=== PATIENT | female | born 1980 | race Caucasian/White ===

== ENCOUNTER → 2016-05-19 | Outpatient (REF) | payer OTHER | LOC: M SFHCWAGY 09:37 | PROVIDERS: ATTEND Nurse Practitioner Family | DX: Z12.4 Encounter for screening for malignant neoplasm of cervix (principal) ==

== ENCOUNTER → 2018-07-09 | Outpatient (REF) | payer OTHER ==
[2018-07-09 19:53] LABS: BASO # 0.1 10^3/uL (0.0-0.2); BASO % 0.6 % (0.0-1.0); EOS # 0.1 10^3/uL (0.0-0.50); EOS % 1.3 % (0.0-3.0); HEMATOCRIT 42.9 % (36.0-47.0); HEMOGLOBIN 14.1 g/dl (12.0-15.5); LYMPH # 3.1 10^3/uL (1.5-4.5); LYMPH % 33.4 % (24.0-44.0); MEAN CORPUSCULAR HEMOGLOBIN 27.7 pg (27.0-33.0); MEAN CORPUSCULAR HGB CONC 32.9 g/dl (32.0-36.5); MEAN CORPUSCULAR VOLUME 84.3 fl (80.0-96.0); MONO # 0.6 10^3/uL (0.0-0.8); MONO % 6.7 % (0.0-5.0); NEUTROPHILS # 5.3 10^3/uL (1.8-7.7); NEUTROPHILS % 57.5 % (36.0-66.0); PLATELET COUNT, AUTOMATED 301 10^3/uL (150-450); RED BLOOD COUNT 5.09 10^6/uL (4.00-5.40); WHITE BLOOD COUNT 9.2 10^3/uL (4.0-10.0)
[2018-07-09 20:05] LABS: ALBUMIN 4.2 GM/DL (3.2-5.2); ALT/SGPT 24 U/L (12-78); BILIRUBIN,TOTAL 0.3 MG/DL (0.2-1.0); BLOOD UREA NITROGEN 13 MG/DL (7-18); CALCIUM LEVEL 9.4 MG/DL (8.5-10.1); CARBON DIOXIDE LEVEL 25 MEQ/L (21-32); CHLORIDE LEVEL 106 MEQ/L (98-107); CHOLESTEROL LEVEL 190 MG/DL (<200); CHOLESTEROL RISK RATIO 3.653 (<5); CREATININE FOR GFR 0.71 MG/DL (0.55-1.30); GLOMERULAR FILTRATION RATE > 60.0 (>60); GLUCOSE, FASTING 85 MG/DL (70-100); HDL CHOLESTEROL 52 MG/DL (>40); LDL CHOLESTEROL 106 MG/DL (<100); NON-HDL-C 138 MG/DL; POTASSIUM SERUM 3.8 MEQ/L (3.5-5.1); SODIUM LEVEL 139 MEQ/L (136-145); TOTAL PROTEIN 7.1 GM/DL (6.4-8.2); TRIGLYCERIDES LEVEL 161 MG/DL (<150)
[2018-07-09 20:06] LABS: TOTAL 25(OH) VITAMIN D 27.8 NG/ML (30.0-100.0)
[2018-07-09 20:37] LABS: HEMOGLOBIN A1c 5.6 %
== END ==
LOC: M LAB REF 19:06
PROVIDERS: ATTEND Nurse Practitioner Family
DX: Z13.9 Encounter for screening, unspecified (principal)

== ENCOUNTER → 2018-07-09 | Outpatient (REF) | payer OTHER ==
[2018-07-09 19:04] LABS: APPEARANCE, URINE CLEAR (CLEAR); BACTERIA, URINE AUTO NEGATIVE (NEGATIVE); BILIRUBIN, URINE AUTO NEGATIVE (NEGATIVE); BLOOD, URINE BLOOD NEGATIVE (NEGATIVE); COLOR, URINE YELLOW (YELLOW); GLUCOSE, URINE (UA) AUTO NEGATIVE (NEGATIVE); KETONE, URINE AUTO 1+ mg/dL (NEGATIVE); LEUKOCYTE ESTERASE, URINE AUTO NEGATIVE (NEGATIVE); NITRITE, URINE AUTO NEGATIVE (NEGATIVE); PROTEIN, URINE AUTO NEGATIVE (NEGATIVE); RBC, URINE AUTO 1 /HPF (0-3); SPECIFIC GRAVITY URINE AUTO 1.009 (1.002-1.035); SQUAMOUS EPITHELIAL CELL UR AU 2 /HPF (0-6); UROBILINOGEN, URINE AUTO 0.2 mg/dL (0.0-2.0); WBC, URINE AUTO 2 /HPF (0-3)
== END ==
LOC: M LAB REF 16:56
PROVIDERS: ATTEND Nurse Practitioner Family
DX: Z13.9 Encounter for screening, unspecified (principal)

== ENCOUNTER → 2018-08-10 | Outpatient (CLI) | payer OTHER ==
--- NOTE | 2018-08-13 09:56 | REP ---
MRI RIGHT SHOULDER: TECHNIQUE: Axial T2 fat sat, gradient echo, sagittal oblique T2 fat sat, coronal oblique T1, T2 fat sat. There is scattered ill-defined high signal in T2-weighted images involving the supraspinatus tendon compatible with mild to moderate tendinopathy. I do not see a discrete rotator cuff tendon tear. There are mild hypertrophic degenerative changes of the acromioclavicular joint with mild subchondral marrow edema and cystic change of the distal clavicle and mild fluid in the joint. The acromion is slightly downward sloping and is type 1. Biceps tendon is within the bicipital groove with no tenosynovitis. There is no Hill-Sachs deformity. The deltoid muscle demonstrates no abnormal signal. There is abnormal signal involving the superior labrum diffusely, also the biceps labral complex. This could indicate a SLAP tear. Other portions of the labrum appear intact. I do not see a paralabral cyst. There is a normal amount of joint fluid. IMPRESSION: Mild supraspinatus tendinopathy without a discrete rotator cuff tendon tear. Mild hypertrophic degenerative changes of the acromioclavicular joint with mild downward sloping of the acromion. Abnormal signal involving the superior labrum diffusely as well as the biceps labral complex could indicate a SLAP tear. This could be confirmed with an MR arthrogram. Electronically Signed by Waylon Jules MD 08/13/2018 11:04 A
== END ==
LOC: M RAD 10:10
PROVIDERS: ATTEND Orthopaedic Surgery Sports Medicine
DX: M25.511 Pain in right shoulder (principal); M19.011 Primary osteoarthritis, right shoulder; M77.9 Enthesopathy, unspecified

== ENCOUNTER → 2019-01-16 | Outpatient (REF) | payer OTHER | LOC: M SFHCPLAZ 17:26 | PROVIDERS: ATTEND Dermatology | DX: D22.4 Melanocytic nevi of scalp and neck (principal) ==

== ENCOUNTER → 2020-07-21 | Outpatient (REF) | payer OTHER | LOC: M SFHCWAGY 13:01 | PROVIDERS: ATTEND Nurse Practitioner Women's Health | DX: Z12.4 Encounter for screening for malignant neoplasm of cervix (principal) | CPT/HCPCS: 87624; G0123 ==

== ENCOUNTER → 2020-08-27 | Outpatient (CLI) | payer OTHER ==
[~2020-08-27] MED LIST: ACET-897 PO; IBUP-1114 PO
== END ==
LOC: M LABSMTC 09:33
PROVIDERS: ATTEND Anesthesiology
DX: Z20.828 Contact with and (suspected) exposure to other viral communicable diseases (principal); Z11.59 Encounter for screening for other viral diseases

== ENCOUNTER 2020-09-01 06:10 | Day surgery (SDC) | payer OTHER ==
[~2020-09-01] VITALS: Ht 154.9 cm; Wt 69.4 kg
[~2020-09-01 06:10] MED LIST changes: +LR 1,000 ML IV ONE; +ceFAZolin SOD 2 GM in IV 1 EA IV ONE
[2020-09-01] MEDS ORDERED: fentaNYL 100 MCG/2 ML INJECTION (J3010) IV PRN ×2 (07:01→09:50)
[2020-09-01] MEDS ORDERED: LIDOCAINE 1% MDV 20ML VIAL XX ONE (07:10)
[2020-09-01] MEDS ORDERED: ROPIvacaine 0.5% 30ML INJECTION (J2795 PER 1MG) XX ONE (07:10)
[2020-09-01] MEDS ORDERED: EPINEPHrine INJ 1 MG/ML 1ML AMP XX ONE (07:10)
[2020-09-01] MEDS ORDERED: EPINEPHrine 1MG/ML INJ 30ML MD-VIAL As Ordered ONE (07:13)
[2020-09-01] MEDS ORDERED: LIDOCAINE 1% MDV 20ML VIAL As Ordered ONE (07:14)
[2020-09-01] MEDS: MIDAZOLAM INJ 2MG/2ML VIAL (J2250 PER 1MG) IV PRN ×3 (07:20→07:22)
[2020-09-01] MEDS ORDERED: METOCLOPRAMIDE INJ 10MG/2ML VIAL (J2765 PER 1) As Ordered ONE (07:58)
[2020-09-01] MEDS ORDERED: dexameTHASONE 4 MG/ML 1ML VIAL (J1100 PER 1MG) As Ordered ONE (07:58)
[2020-09-01] MEDS ORDERED: LIDOCAINE 2% 100MG/5ML SDV (FOR ANES.) As Ordered ONE (07:58)
[2020-09-01] MEDS ORDERED: MIDAZOLAM INJ 2MG/2ML VIAL (J2250 PER 1MG) As Ordered ONE (07:58)
[2020-09-01] MEDS ORDERED: ROCURONIUM BROMIDE 50 MG/5 ML VIAL As Ordered ONE (07:58)
[2020-09-01] MEDS ORDERED: SUGAMMADEX SODIUM 500 MG/5 ML VIAL (BRIDION) As Ordered ONE (07:58)
[2020-09-01] MEDS ORDERED: fentaNYL 250 MCG/5 ML INJECTION (J3010) As Ordered ONE (07:58)
[2020-09-01] MEDS ORDERED: propofoL 200 MG/20 ML VIAL As Ordered ONE (07:58)
[2020-09-01] MEDS ORDERED: ACETAMINOPHEN 1000MG 100ML IV BTL (OFIRMEV) (J0131 PER 10MG) As Ordered ONE (07:58)
[2020-09-01] MEDS ORDERED: ONDANSETRON 4MG/2ML VIAL As Ordered ONE (07:58)
[2020-09-01] MEDS ORDERED: diphenhydrAMINE 50MG/ML VIAL (J1200) As Ordered ONE (08:07)
[2020-09-01] MEDS ORDERED: KETOROLAC 60MG 2ML VIAL As Ordered ONE (08:07)
--- NOTE | 2020-09-01 09:41 | ROOPDOC ---
[facility] Report Of Operation Report of Operation DATE OF PROCEDURE: 09/01/20 PREPROCEDURE DIAGNOSES: Right shoulder impingement. POSTPROCEDURE DIAGNOSES: Right shoulder impingement and type II SLAP tear. PROCEDURE: Right shoulder arthroscopy, subacromial decompression, distal clavicle excision, sub-pectoral biceps tenodesis. SURGEON: Dr. Ranjith Almeida MD [employer] APPRENTICE: MD Miguel ANESTHESIA: Gen. anesthesia and block by Dr Parkinson. ESTIMATED BLOOD LOSS: Approximately 20 mL. COMPLICATIONS: None. REMARKS: None. PROCEDURE NOTE: This 40-year-old female had signs and symptoms consistent with right shoulder impingement as well as pain from the acromioclavicular joint. She was ahead with right shoulder arthroscopy subacromial decompression distal clavicle excision and possible subpectoral biceps tenodesis. We discussed the pros and cons risks and benefits of going ahead. She wished to proceed. I marked the right upper extremity. She had no further questions.. DESCRIPTION OF PROCEDURE: The patient was brought to the operating room theater. There placed supine on the operating room table. General anesthesia was induced. 2 g of IV Ancef was administered prior to the start of the case. Patient was transferred right lateral decubitus with the aid of the beanbag positioner and axillary roll was placed SCDs used on the down legs and all bony prominences appropriately padded. Right upper extremity prepped and draped with chlorhexidine-based prep solution and 45 of abduction with 10 pounds of traction. Preoperative timeout performed to confirm the site the patient and the surgery. We began by making a standard posterior arthroscopy portal inserting the arthroscope into the intra-articular portion of the right shoulder. I performed a thorough diagnostic arthroscopy. Cartilage on the glenoid and humerus side was normal. Subscapularis as well as undersurface of the supraspinatus and posterior rotator cuff muscles appeared normal. Anterior portal was created through the rotator interval just posterior to the biceps tendon. There is an obvious type II SLAP tear of the biceps root. The biceps tendon itself appeared normal. As such I elected to perform a biceps tenodesis. I used intra-articular electrocautery to perform biceps tenotomy in preparation for the tenodesis.. Arthroscope was withdrawn. Next I turned my attention to the upper end of the humerus. I made a standard longitudinal incision centered at the proximal anterior medial border of the upper humerus. I carried the dissection down throu gh skin and subcutaneous tissue achieving meticulous hemostasis. I incised through the fascia and a similar fashion and retracted the deltoid anteriorly. I identified the long head of the biceps. I delivered this through the incision. I used the Arthrex fiber loop suture and Tanner needle to perform 5 locking sutures starting at the musculotendinous junction. I removed any remaining long head of the biceps tendon. I then identified the biceps groove. I made a unicortical hole with the straight tip drill bit and then thoroughly irrigated and any bone dust. I passed the sutures in a crisscross fashion through the button and in a standard way. I then delivered the button and the whole foot the button and then used the tension slide technique to deliver the tendon to the bone. I then used a free needle to pass 1 suture through the remaining tendon and then 5 interrupted alternating half hitches and the sutures cut short. Wound thoroughly irrigated subcutaneous tissues closed with 2-0 Vicryl and skin with 3-0 Monoc ryl. And instrument attention back to the shoulder. I inserted the arthroscope into the subacromial space. I made a lateral accessory portal. I performed a thorough bursectomy for a normal-appearing amount of mild to moderate bursal tissue. I identified the anterolateral aspect of the acromion for a slight downsloping and then did a subacromial decompression for approximately 4 mm down to flat smooth margins. I then identified the lower end of the clavicle. I cleared away any interposed soft tissue. I performed a distal clavicle excision through the lateral and anterior portals. I excised approximately 1.1 cm of the distal end of the clavicle. Arthroscopy pictures were taken through the case and saved onto the system. Case was terminated. Wounds cleaned with wet and dry dressing. Anterior portal closed with 3-0 Monocryl. Steri-Strips applied to all the incisions followed by Adaptic 4 x 8 gauze and abdominal pad dressing taped in place with cloth tape. Right upper extremity placed into a sling. Patient woken up from the general anesthetic transferred off the operating room table and taken to postanesthetic care unit in stable condition. Plan for the patient begin pendulum exercises 4 times a day as well as hand wrist and elbow exercises. Follow-up in the clinic in 2 weeks' time. Avoid showering over top of the first 2 weeks keep it clean and dry dressing changes postoperative day 1, 2, and as needed. The patient declined oral narcotic medication for postoperative pain control and will try Tylenol and anti-inflammatories. Postoperative wound instructions were given. It was recommended to keep the wound clean and dry. Dressing changes as needed. It was reinforced with the patient that they should call us or be seen immediately for redness, drainage, or fever. Risk factors for harms from taking opioid medications discussed and assessed including but not limited to personal or family history of substance use disorder, anxiety or depression, , age 65 or older, COPD or other underlying respiratory conditions, and renal or hepatic insufficiency. Discussed with patient concerns and determined any harms they may experience or be currently experiencing such as nausea or constipation, feeling sedated or confused, breathing interruptions during sleep, or taking or craving more opioids than prescribed or difficulty controlling use (addiction). Discussed early warning signs of overdose including confusion, sedation, slurred speech, abnormal gait. RANJITH LAMEIDA MD Sep 01, 2020 09:41
[2020-09-01] MEDS ORDERED: PERCOCET 5MG/325MG TAB PO PRN ×2 (09:50→09:55)
[2020-09-01] MEDS ORDERED: METOCLOPRAMIDE INJ 10MG/2ML VIAL (J2765 PER 1) IV PRN (09:50)
[2020-09-01] MEDS ORDERED: HYDROMORPHONE HCL 0.5 MG/ 0.5 ML SYRINGE (J1170 PER 1) IV PRN (09:50)
[2020-09-01] MEDS ORDERED: ONDANSETRON 4MG/2ML VIAL IV PRN ×2 (09:50→09:55)
[2020-09-01] MEDS ORDERED: LR 1,000 ML IV SCH ×2 (09:50)
[2020-09-01] MEDS ORDERED: MORPHINE 2 MG/ML 1ML VIAL (J2270) IV PRN (09:55)
[2020-09-01] MEDS ORDERED: ACETAMINOPHEN TAB 650MG DOSE (2X325MG) PO PRN (09:55)
[2020-09-01 10:25] VITALS: BP 100/55
== END 2020-09-01 10:25 | disposition home or self-care (01) ==
LOC: M SDC 06:10
PROVIDERS: ATTEND Orthopaedic Surgery Sports Medicine
DX: M75.41 Impingement syndrome of right shoulder (principal); Z88.8 Allergy status to other drugs, medicaments and biological substances; F17.218 Nicotine dependence, cigarettes, with other nicotine-induced disorders
CPT/HCPCS: 23430; 29824; 29826; 64415; 88304; C1713; J0131; J0171; J0690; J1100; J1200; J1885; J2250; J2405; J2765; J2795; J3010

== ENCOUNTER → 2021-05-11 | Outpatient (CLI) | payer OTHER ==
[~2021-05-11] MED LIST changes: -LR 1,000 ML IV ONE; -ceFAZolin SOD 2 GM in IV 1 EA IV ONE
== END ==
LOC: M WHC 11:59
PROVIDERS: ATTEND Nurse Practitioner Family
DX: N94.89 Other specified conditions associated with female genital organs and menstrual cycle (principal)

== ENCOUNTER → 2021-06-13 | Outpatient (CLI) | payer OTHER ==
[2021-06-13 17:22] LABS: HEMATOCRIT 43.4 % (36.0-47.0); HEMOGLOBIN 14.2 g/dl (12.0-15.5); MEAN CORPUSCULAR HEMOGLOBIN 27.4 pg (27.0-33.0); MEAN CORPUSCULAR HGB CONC 32.7 g/dl (32.0-36.5); MEAN CORPUSCULAR VOLUME 83.8 fl (80.0-96.0); PLATELET COUNT, AUTOMATED 293 10^3/uL (150-450); RED BLOOD COUNT 5.18 10^6/uL (4.00-5.40); WHITE BLOOD COUNT 10.2 10^3/uL (4.0-10.0)
[2021-06-13 17:54] LABS: FREE T4 1.16 NG/DL (0.76-1.46); THYROID STIMULATING HORMONE 2.09 uIU/ML (0.358-3.740)
== END ==
LOC: M PLALAB 14:49
PROVIDERS: ATTEND Obstetrics & Gynecology
DX: N93.9 Abnormal uterine and vaginal bleeding, unspecified (principal)

== ENCOUNTER → 2021-08-01 | Outpatient (CLI) | payer OTHER | LOC: M LABSMTC 09:31 | PROVIDERS: ATTEND Anesthesiology | DX: Z01.812 Encounter for preprocedural laboratory examination (principal); Z11.52 Encounter for screening for COVID-19; U07.1 COVID-19 ==

== ENCOUNTER 2021-08-05 07:58 | Day surgery (SDC) | payer OTHER ==
[~2021-08-05] VITALS: Ht 154.9 cm; Wt 65.7 kg
[~2021-08-05 07:58] MED LIST changes: +KETOROLAC 60MG 2ML VIAL As Ordered ONE; +LIDOCAINE 1% MDV 20ML VIAL SQ PRN; +LIDOCAINE 2% 100MG/5ML SDV (FOR ANES.) As Ordered ONE; +LR 1,000 ML IV ONE; +MIDAZOLAM INJ 2MG/2ML VIAL (J2250 PER 1MG) As Ordered ONE; +ONDANSETRON 4MG/2ML VIAL As Ordered ONE; +SEVOFLURANE INHAL SOLN 250 ML BTL As Ordered ONE; +dexameTHASONE 4 MG/ML 1ML VIAL (J1100 PER 1MG) As Ordered ONE; +fentaNYL 100 MCG/2 ML INJECTION As Ordered ONE; +propofoL 200 MG/20 ML VIAL As Ordered ONE
[2021-08-05 08:44] LABS: HEMOGLOBIN 14.4 g/dl (12.0-15.5); MEAN CORPUSCULAR HEMOGLOBIN 27.5 pg (27.0-33.0); MEAN CORPUSCULAR HGB CONC 32.7 g/dl (32.0-36.5); PLATELET COUNT, AUTOMATED 309 10^3/uL (150-450); RED BLOOD COUNT 5.24 10^6/uL (4.00-5.40); WHITE BLOOD COUNT 5.2 10^3/uL (4.0-10.0)
[2021-08-05] MEDS ORDERED: diphenhydrAMINE 50MG/ML VIAL (J1200) As Ordered ONE (09:10)
[2021-08-05] MEDS ORDERED: SCOPOLAMINE 1MG TRANSDERMAL PATCH As Ordered ONE (09:22)
[2021-08-05] MEDS ORDERED: SCOPOLAMINE 1MG TRANSDERMAL PATCH TOP ONE (09:45)
[2021-08-05] MEDS ORDERED: ePHEDrine SULFATE 25 MG/5 ML(5MG/ML) SYRINGE As Ordered ONE (09:46)
[2021-08-05] MEDS ORDERED: METOCLOPRAMIDE INJ 10MG/2ML VIAL (J2765 PER 1) As Ordered ONE (09:53)
[2021-08-05] MEDS ORDERED: LACRILUBE (AKWA TEARS) OPHTH OINT 3.5 GM As Ordered ONE (10:07)
[2021-08-05] MEDS ORDERED: oxyCODONE 5MG TAB PO PRN (10:55)
[2021-08-05] MEDS ORDERED: ONDANSETRON 4MG/2ML VIAL IV PRN (10:55)
[2021-08-05] MEDS ORDERED: LR 1,000 ML IV SCH (10:55)
[2021-08-05] MEDS ORDERED: fentaNYL 100 MCG/2 ML INJECTION IV PRN (10:55)
[2021-08-05] MEDS ORDERED: HYDROMORPHONE HCL 0.5 MG/ 0.5 ML SYRINGE (J1170 PER 1) IV PRN (10:55)
[2021-08-05] MEDS ORDERED: PERCOCET 5MG/325MG TAB PO PRN (11:00)
[2021-08-05 11:55] VITALS: BP 125/65
[2021-08-05] MEDS ORDERED: KETOROLAC 30 MG/ML 1ML VIAL IV SCH (15:00)
== END 2021-08-05 12:06 | disposition home or self-care (01) ==
LOC: M SDC 07:58
PROVIDERS: ATTEND Obstetrics & Gynecology
DX: N94.6 Dysmenorrhea, unspecified (principal); N93.9 Abnormal uterine and vaginal bleeding, unspecified; F17.210 Nicotine dependence, cigarettes, uncomplicated; Z88.8 Allergy status to other drugs, medicaments and biological substances
CPT/HCPCS: 36415; 58563; 81025; 85027; 86850; 86900; 86901; 88305; J1100; J1200; J1885; J2250; J2405; J2765; J3010

== ENCOUNTER → 2022-01-27 | Outpatient (CLI) | payer OTHER ==
[~2022-01-27] MED LIST changes: -KETOROLAC 60MG 2ML VIAL As Ordered ONE; -LIDOCAINE 1% MDV 20ML VIAL SQ PRN; -LIDOCAINE 2% 100MG/5ML SDV (FOR ANES.) As Ordered ONE; -LR 1,000 ML IV ONE; -MIDAZOLAM INJ 2MG/2ML VIAL (J2250 PER 1MG) As Ordered ONE; -ONDANSETRON 4MG/2ML VIAL As Ordered ONE; -SEVOFLURANE INHAL SOLN 250 ML BTL As Ordered ONE; -dexameTHASONE 4 MG/ML 1ML VIAL (J1100 PER 1MG) As Ordered ONE; -fentaNYL 100 MCG/2 ML INJECTION As Ordered ONE; -propofoL 200 MG/20 ML VIAL As Ordered ONE
== END ==
LOC: M SOG 08:25
PROVIDERS: ATTEND Orthopaedic Surgery
DX: M54.2 Cervicalgia (principal); M25.511 Pain in right shoulder

== ENCOUNTER → 2022-01-31 | Outpatient (REF) | payer OTHER ==
[2022-01-31 13:28] LABS: APPEARANCE, URINE MANUAL CLEAR (CLEAR); COLOR, URINE MANUAL GREEN (YELLOW); PROTEIN, URINE MANUAL OBSCURED mg/dL (NEGATIVE)
[2022-01-31 13:29] LABS: BILIRUBIN, URINE MANUAL OBSCURED (NEGATIVE); BLOOD URINE MANUAL OBSCURED (NEGATIVE); GLUCOSE, URINE (UA) MANUAL OBSCURED mg/dL (NEGATIVE); KETONE, URINE MANUAL OBSCURED mg/dL (NEGATIVE); LEUKOCYTE ESTERASE, URINE MAN OBSCURED (NEGATIVE); NITRITE, URINE MANUAL OBSCURED (NEGATIVE); UROBILINOGEN, URINE MANUAL OBSCURED mg/dl (NORMAL)
[2022-01-31 13:43] LABS: SQUAMOUS EPITHELIAL CELL URINE SMALL AMOUNT /hpf (SMALL AMT)
[2022-01-31 13:44] LABS: BACTERIA, URINE SMALL AMOUNT; HYALINE CAST, URINE NONE SEEN /lpf (0-1); MUCUS, URINE SMALL AMOUNT (NEGATIVE)
== END ==
LOC: M LAB REF 11:41
PROVIDERS: ATTEND Physician Assistant Medical
DX: N39.0 Urinary tract infection, site not specified (principal)

== ENCOUNTER → 2022-02-18 | Outpatient (CLI) | payer OTHER | LOC: M RAD 08:08 | PROVIDERS: ATTEND Orthopaedic Surgery | DX: M47.22 Other spondylosis with radiculopathy, cervical region (principal) ==

== ENCOUNTER 2022-02-21 14:47 | Outpatient (RCR) | payer OTHER | END 2022-03-18 | LOC: M PT 14:47 | PROVIDERS: ATTEND Orthopaedic Surgery | DX: M25.511 Pain in right shoulder (principal) ==

== ENCOUNTER → 2022-02-23 | Outpatient (REF) | payer OTHER | LOC: M SFHCWAGY 15:18 | PROVIDERS: ATTEND Specialist | DX: N39.0 Urinary tract infection, site not specified (principal) ==

== ENCOUNTER → 2022-04-20 | Outpatient (REF) | payer OTHER | LOC: M LAB REF 12:28 | PROVIDERS: ATTEND Physician Assistant | DX: R50.9 Fever, unspecified (principal) ==

== ENCOUNTER → 2023-07-27 | Outpatient (REF) | payer OTHER ==
[2023-07-27 13:28] LABS: APPEARANCE, URINE MANUAL HAZY (CLEAR)
[2023-07-27 13:29] LABS: COLOR, URINE MANUAL ORANGE (YELLOW); GLUCOSE, URINE (UA) MANUAL OBSCURED mg/dL (NEGATIVE); PROTEIN, URINE MANUAL OBSCURED mg/dL (NEGATIVE); SPECIFIC GRAVITY,URINE MANUAL 1.025 (1.002-1.035)
[2023-07-27 13:30] LABS: BILIRUBIN, URINE MANUAL OBSCURED (NEGATIVE); BLOOD URINE MANUAL OBSCURED (NEGATIVE); KETONE, URINE MANUAL OBSCURED mg/dL (NEGATIVE); LEUKOCYTE ESTERASE, URINE MAN OBSCURED (NEGATIVE); NITRITE, URINE MANUAL OBSCURED (NEGATIVE); UROBILINOGEN, URINE MANUAL OBSCURED mg/dl (NORMAL)
[2023-07-27 13:41] LABS: SQUAMOUS EPITHELIAL CELL URINE MOD AMOUNT /hpf (SMALL AMT)
[2023-07-27 13:42] LABS: MUCUS, URINE MOD AMOUNT (NEGATIVE)
[2023-07-27 13:43] LABS: BACTERIA, URINE SMALL AMOUNT; HYALINE CAST, URINE NONE SEEN /lpf (0-1)
== END ==
LOC: M LAB REF 12:43
PROVIDERS: ATTEND Physician Assistant
DX: N39.0 Urinary tract infection, site not specified (principal)

== ENCOUNTER → 2024-04-16 | Outpatient (REF) | payer OTHER ==
[2024-04-19 16:37] LABS: HPV APTIMA Not Detected (Not Detected)
== END ==
LOC: M PLALAB 16:41
PROVIDERS: ATTEND Obstetrics & Gynecology
DX: Z01.419 Encounter for gynecological examination (general) (routine) without abnormal findings (principal)
CPT/HCPCS: 87624; G0123

== ENCOUNTER → 2024-04-16 | Outpatient (CLI) | payer OTHER | LOC: M WHC 13:04 | PROVIDERS: ATTEND Obstetrics & Gynecology | DX: N63.21 Unspecified lump in the left breast, upper outer quadrant (principal); R92.333 Mammographic heterogeneous density, bilateral breasts; N60.01 Solitary cyst of right breast | CPT/HCPCS: 76641; 77066; G0279 ==

== ENCOUNTER → 2024-06-07 | Outpatient (REF) | payer OTHER ==
[2024-06-07 15:55] LABS: APPEARANCE, URINE MANUAL CLEAR (CLEAR); BILIRUBIN, URINE MANUAL NEGATIVE (NEGATIVE); BLOOD URINE MANUAL TRACE (NEGATIVE); COLOR, URINE MANUAL YELLOW (YELLOW); GLUCOSE, URINE (UA) MANUAL NEGATIVE (NEGATIVE); KETONE, URINE MANUAL NEGATIVE (NEGATIVE); LEUKOCYTE ESTERASE, URINE MAN NEGATIVE (NEGATIVE); NITRITE, URINE MANUAL NEGATIVE (NEGATIVE); PROTEIN, URINE MANUAL NEGATIVE (NEGATIVE); UROBILINOGEN, URINE MANUAL NORMAL (NORMAL)
[2024-06-07 15:56] LABS: BACTERIA, URINE SMALL AMOUNT; HYALINE CAST, URINE NONE SEEN /lpf (0-1); RBC, URINE 0-1 /hpf (0-3); SQUAMOUS EPITHELIAL CELL URINE SMALL AMOUNT /hpf (SMALL AMT); WBC, URINE 0-1 /hpf (0-3)
== END ==
LOC: M LAB REF 15:34
PROVIDERS: ATTEND Physician Assistant
DX: N39.0 Urinary tract infection, site not specified (principal)

== ENCOUNTER → 2024-09-17 | Outpatient (CLI) | payer OTHER ==
[2024-09-17 07:38] VITALS: TEMP 98.6
[2024-09-17 08:11] VITALS: BP 110/74; O2SAT 100
== END ==
LOC: M WHCPRO 07:33
PROVIDERS: ATTEND Surgery
DX: N60.01 Solitary cyst of right breast (principal)

== ENCOUNTER → 2024-10-23 | Outpatient (CLI) | payer OTHER | LOC: M WHC 14:28 | PROVIDERS: ATTEND Obstetrics & Gynecology | DX: N63.20 Unspecified lump in the left breast, unspecified quadrant (principal); Z53.9 Procedure and treatment not carried out, unspecified reason ==

== ENCOUNTER → 2024-10-29 | Outpatient (CLI) | payer OTHER | LOC: M WHC 13:04 | PROVIDERS: ATTEND Obstetrics & Gynecology | DX: N63.20 Unspecified lump in the left breast, unspecified quadrant (principal) ==